=== PATIENT | female | born 2000 | race Caucasian/White ===

== ENCOUNTER 2024-07-01 08:16 | Emergency (ER) | payer OTHER, MEDICAID, SELFPAY ==
[2024-07-01 08:32] VITALS: BP 103/65; PULSE 71; RESP 18; TEMP 36.8; O2SAT 99; BMI 24.4
--- NOTE | 2024-07-01 08:39 | XR_ITS ---
Examination: Complete OB ultrasound, less than 14 weeks, transabdominal Date and time of exam: July 01, 2024 0915 hours INDICATIONS: Maternal anemia on laboratory examination June 16, 2024, vaginal bleeding history Technique: Obstetrical ultrasound images less than 14 weeks performed via transabdominal imaging Findings: Uterus 14.1 x 5.6 x 7.0 cm Intrauterine gestational sac 3.2 cm corresponds to 8 weeks 3 days gestational age No pole No cardiac activity Right ovary 3.5 x 3.0 x 2.8 cm arterial flow 22 mm follicular cyst Left ovary 2.9 x 2.1 x 2.7 cm arterial flow IMPRESSION: Findings most consistent with demise, recommend short-term follow-up transvaginal pelvic sonography
--- NOTE | 2024-07-01 08:40 | EDNOTE_ITS ---
<Statement entered by Jeanine Musa MD - 07/08/24 14:47> As co-signing physician, I was present and available for consult prn. I concur with the plan and care as documented by the midlevel provider. ED OB Contraction Preg RMI/HPI General Chief complaint: OB/Uterine Contractions Stated complaint: SENT BY OB FOR US Time Seen by Provider: 07/01/24 08:37 Source: patient Arrival date/time: 07/01/24 08:16 24-year-old female with no known medical history presents to the emergency room with a chief complaint of a decreasing hCG levels. Patient was sent over by her OB for an ultrasound due to having decreased hCG levels and no heart tones heard during her 11-week appointment. Mode of arrival: ambulatory Limitations: no limitations Related Data Home Medications ?Medication ?Instructions ?Recorded ?Confirmed No Known Home Medications 11/12/21 11/12/21 Allergies Allergy/AdvReac Type Severity Reaction Status Date / Time promethazine Allergy Verified 07/01/24 08:20 Review of Systems Review of Systems Systems Reviewed: All systems reviewed, normal except as documented Constitutional Constitutional: Reports system reviewed and no additional complaints, except as documented, Denies fatigue, Denies fever(s), Denies headache(s) and Denies weakness Eyes Eyes: Reports system reviewed and no additional complaints, except as documented, Denies blurry vision and Denies change in vision ENT Ears, Nose, Mouth, and Throat: Reports system reviewed and no additional complaints, except as documented, Denies otalgia, Denies headache(s), Denies nasal congestion, Denies throat swelling and Denies vertigo Cardiovascular Cardiovascular: Reports system reviewed and no additional complaints, except as documented, Denies chest pain, Denies dyspnea and Denies dyspnea on exertion Respiratory Respiratory: Reports system reviewed and no additional complaints, except as documented, Denies chest congestion, Denies cough, Denies dyspnea, Denies dyspnea on exertion and Denies wheezing Gastrointestinal Gastrointestinal: Reports system reviewed and no additional complaints, except as documented, Denies abdominal pain, Denies cramping, Denies nausea and Denies vomiting Genitourinary Genitourinary: Reports system reviewed and no additional complaints, except as documented, Denies abnormal vaginal bleeding, Denies difficulty voiding and Denies pelvic pain Musculoskeletal Musculoskeletal: Reports system reviewed and no additional complaints, except as documented and Denies back pain Integumentary/Breasts Skin/Breast: Reports system reviewed and no additional complaints, except as do cumented and Denies wounds Neurologic Neurologic: Reports system reviewed and no additional complaints, except as documented, Denies confusion, Denies headache(s), Denies lack of coordination, Denies vertigo and Denies weakness Psychiatric Psychiatric: Reports system reviewed and no additional complaints, except as documented, Denies anxiety, Denies confusion, Denies depression, Denies paranoia, Denies suicidal ideation and Denies tactile hallucinations Endocrine Endocrine: Reports system reviewed and no additional complaints, except as documented and Denies fatigue Hematologic/Lymphatic Hematologic/Lymphatic: Reports system reviewed and no additional complaints, except as documented and Denies lymphadenopathy Allergic/Immunologic Allergic/Immunologic: Reports system reviewed and no additional complaints, except as documented, Denies throat swelling, Denies urticaria and Denies wheezing Past Medical History Past Medical History CARDIAC: Negative Congestive Heart Failure RESPIRATORY: Negative Chronic Obstructive Pulmonary Disease (COPD) GENITOURINARY: Negative Renal Disease ENDOCRINE: Negative Diabetes Mellitus Type 1 or Diabetes Mellitus Type 2 Social History SMOKING STATUS: Never smoker ED Exam General Limitations: Present no limitations General appearance: Present alert and in no apparent distress Head Head exam: Present atraumatic Eye Eye exam: Present normal appearance, PERRL and EOMI ENT ENT exam: Present normal exam, normal oropharynx and mucous membranes moist Neck Neck exam: Present normal inspection, full ROM and trachea midline Chest Chest inspection: Present normal inspection and symmetric chest wall rise Respiratory Respiratory exam: Present normal lung sounds bilaterally Cardiovascular Cardiovascular exam: Present regular rate, normal rhythm and normal heart sounds Abdominal Exam Abdominal exam: Present soft and normal bowel sounds; Absent distention, tenderness, guarding, rebound or rigidity Extremities Exam Extremities exam: Present normal inspection and full ROM Back Exam Back exam: Present normal inspection and full ROM Neurological Exam Neurological exam: Present alert, oriented X3 and CN II-XII intact Psychiatric Psychiatric exam: Present normal affect and normal mood Skin Skin exam: Present warm, dry, intact and normal color Course Quality Measures none Orders Category Date Time Status US OB <= 14 weeks fetus Stat Exams 07/01/24 08:39 Completed ABO/RH Type Stat Lab 07/01/24 09:05 Completed Beta HCG,Quantitative Stat Lab 07/01/24 09:05 Completed CBC Stat Lab 07/01/24 09:05 Completed CMP [Comprehensive Metabolic Panel] Stat Lab 07/01/24 09:05 Completed UA [Urinalysis] Stat Lab 07/01/24 08:59 Completed Vital Signs Vital signs: Vital Signs Temperature 98.3 F 07/01/24 08:32 Pulse Rate 71 07/01/24 08:32 Respiratory Rate 18 07/01/24 08:32 Blood Pressure 103/65 07/01/24 08:32 Pulse Oximetry (%) 99 07/01/24 08:32 Oxygen Delivery Method Room Air 07/01/24 08:32 OB/Uterine Contractions MDM Narrative MDM Narrative:: 24-year-old female with no known medical history presents to the emergency room with a chief complaint of a decreasing hCG levels. Patient was sent over by her OB for an ultrasound due to having decreased hCG levels and no heart tones heard during her 11-week appointment. Clinically the patient appears nontoxic and in no apparent distress. Physical examination shows no abdominal pain or tenderness. There is no vaginal bleeding at this time. Patient states she is here because her OB center for decreased hCG levels and no heart tones heard. Ultrasound was completed and shows no heart tones no pole and findings consistent with demise our radiologist recommends a short-term follow-up. Patient was educated to follow-up with her [facility] in the next 48 hours and if she is unable to get to an ultrasound appointment to return to the emergency room for repeat ultrasound and blood work. I ran the case with my attending physician Dr. MUSA and she agreed to the patient is ready for discharge. Patient was educated to follow-up with OB and return to the emergency room for any evidence of worsening signs or symptoms Patient data External records reviewed:: [facility] previous records Clinical information provided by:: patient Social determinants that could affect healthcare access:: none Patient has the following chronic illnesses:: No chronic illness How is presenting disease/condition affected by chronic disease/condition?: no chronic disease Evaluation data The following diagnostics were reviewed and interpreted by me:: lab results and radiology exam(s) Lab and/or radiology exams considered but not ordered:: Labs and radiology exams considered and ordered Interpretation Summary: Ultrasound OB-Findings: Uterus 14.1 x 5.6 x 7.0 cm Intrauterine gestational sac 3.2 cm corresponds to 8 weeks 3 days gestational age No pole No cardiac activity Right ovary 3.5 x 3.0 x 2.8 cm arterial flow 22 mm follicular cyst Left ovary 2.9 x 2.1 x 2.7 cm arterial flow IMPRESSION: Findings most consistent with demise, recommend short-term follow-up transvaginal pelvic sonography Medications / Prescriptions Medications or Prescriptions considered but not ordered:: N/A Medication administrations:: N/A Consultations Consultation(s) initiated? (list below): No Diagnosis OB Contractions Differential Diagnosis: normal delivery at term and other (Spontaneous /incomplete /complete ) Most likely diagnosis given after review of the tests above:: Incomplete Admission Indicated Admission indicated?: not indicated Explain why admission is indicated or not indicated:: N/A Admission Request Was there a request for admission?: No Disposition Plan Disposition Plan: Discharge Discharge Attestation Discharge Attestation: The patient and all family members were given an opportunity to ask questions and understood the discharge instructions. Discharge instructions specifically effects, indications for sooner follow up or return to the emergency department, and the expected course of current diagnosis. Patient condition: Stable Discharge Plan Plan Patient Disposition: HOME (Self Care) Disposition Comment: Stable Prescriptions/Referrals Prescriptions/Med Rec: No Action No Known Home Medications Referrals: Carlos Zhou MD [Primary Care Provider] - In 1 week Problem List Clinical Impression: Spontaneous Patient/Caregiver Discharge Instructions Education Materials: Loss Grieving, Understanding Miscarriage: Emotions, ED MISCARRIAGE Completed Additional Instructions: Please follow-up with your [facility] in 48 hours for repeat ultrasound and blood work. I attached a copy of your ultrasound results to your discharge paperwork. If you are unable to get to your OB please return to the emergency room. For any evidence of worsening signs or symptoms please return to the emergency room immediately Print Language: Czech Stand Alone Forms: Eli Award Info., Work/School Release, Patient Portal Info Letter PA/RASHID Supervising Physician PA/RASHID Supervising Physician: Dr. MUSA
[2024-07-01 09:14] LABS: Collection Type, Urine Clean Catch
[2024-07-01 09:20] LABS: Basophils % (Auto) 1 % (0-2.5); Eosinophils % (Auto) 1 % (0-10); Hemoglobin 11.5 g/dL (12.0-16.0); Immature Granulocytes % (Auto) 0 % (0-0); Immature Granulocytes Auto 0.01 Thou/mm3 (0.00-0.00); Lymphocytes # (Auto) 2.1 Thou/mm3 (1.0-4.8); Lymphocytes % (Auto) 32 % (10-50); Mean Corpuscular HGB Conc 32.9 g/dl (31.0-37.0); Mean Corpuscular Hemoglobin 29.3 pg (25.0-35.0); Mean Corpuscular Volume 89 fL (80-100); Monocytes # (Auto) 0.5 Thou/mm3 (0.0-0.8); Monocytes % (Auto) 7 % (0-12); Neutrophils # (Auto) 3.8 Thou/mm3 (1.8-7.7); Neutrophils % (Auto) 60 % (37-80); Nucleated Red Blood Cell % 0 /100 WBC (0); Platelet Count 269 Thou/mm3 (140-440); RDW Standard Deviation 39.1 fL (36.4-46.3); Red Blood Count 3.92 Miln/mm3 (4.00-5.20); White Blood Count 6.4 Thou/mm3 (3.6-11.0)
[2024-07-01 09:21] LABS: Bacteria,Urine 1+; Bilirubin,Urine Negative (Negative); Blood,Urine Negative (Negative); Clarity,Urine Clear (Clear/Hazy); Color,Urine Colorless (Lt Yel-Yel); Glucose, Urine Negative (Negative); Ketones,Urine Negative (Negative); Leukocyte Esterase,Urine Negative (Negative); Nitrite,Urine Negative (Negative); PH,Urine 7.5 (5.0-7.0); Protein,Urine Negative (Neg - Trace); RBC,Urine 6 /hpf (0-3); Specific Gravity,Urine 1.012 (1.001-1.035); Squamous Epithelial Cell,Urine 5 /hpf (0-5); Urobilinogen,Urine Negative mg/dL (0.0-1.0); WBC,Urine 1 /hpf (0-5)
[2024-07-01 09:48] LABS: Alanine Aminotransferase 12 U/L (10-49); Albumin, Serum 4.6 gm/dL (3.5-5.0); Albumin/Globulin Ratio 1.8 (1.2-2.2); Alkaline Phosphatase 45 U/L (46-116); Anion Gap 9 (7-16); Aspartate Amino Transferase 11 U/L (0-34); BUN/Creatinine Ratio 18 Ratio (12-20); Bilirubin,Total 0.3 mg/dL (0.3-1.2); Blood Urea Nitrogen 11 mg/dL (9-23); Calcium 9.7 mg/dL (8.3-10.6); Calcium (Corrected) 9.7 mg/dL (8.5-10.1); Carbon Dioxide 23.3 mMol/L (20.0-31.0); Chloride 104 mMol/L (98-107); Creatinine (Component) 0.6 mg/dL (0.6-1.3); Estimated Creatinine Clearance 130.9 mL/min (>60); Globulin 2.6 gm/dL (2.3-3.5); Glucose 70 mg/dL (74-106); Osmolality,Calculated 269 (275-295); Potassium 4.2 mMol/L (3.4-5.1); Sodium 136 mMol/L (136-145); Total Protein 7.2 gm/dL (5.7-8.2); eGFR > 60 See Note
[2024-07-01 10:22] LABS: Beta HCG,Quantitative 21262 mIU/mL (<5.0)
== END 2024-07-01 10:55 | disposition home or self-care (01) ==
PROVIDERS: Nurse Practitioner Family; Emergency Provider Emergency Medicine; PCP Family Medicine
DX: O03.4 Incomplete spontaneous abortion without complication (principal)
CPT/HCPCS: 36415; 76801; 80053; 81001; 84702; 85025; 86900; 86901; 99284

== ENCOUNTER 2024-07-14 08:18 | Emergency (ER) | payer OTHER, MEDICAID, SELFPAY ==
[2024-07-14 08:26] VITALS: BP 110/65; PULSE 72; RESP 19; TEMP 36.6; O2SAT 100; BMI 24.5
--- NOTE | 2024-07-14 08:31 | XR_ITS ---
Examination: OB Transvaginal ultrasound of the pelvis, complete Technique: Transvaginal sonographic images pelvis performed using rush scale imaging Exam date and time: July 14, 2024 0922 hours INDICATIONS: medication administered one week ago FINDINGS: Uterus 12.3 x 7.5 x 9.4 cm Intrauterine gestational sac 2.3 cm corresponds to 7 weeks 2 days gestational age No pole No cardiac activity Right ovary 3.0 x 2.5 cm arterial flow 17 mm follicular cyst Left ovary 3.0 x 2.3 cm arterial flow IMPRESSION: Empty intrauterine gestational sac corresponding to 7 weeks 2 days gestational age No pole, no cardiac activity Findings most consistent with spontaneous in progress, recommend continued short-term follow-up transvaginal pelvic sonography.
--- NOTE | 2024-07-14 08:31 | XR_ITS ---
Examination: Complete OB ultrasound, less than 14 weeks, transabdominal Date and time of exam: July 14, 2024 0902 hours INDICATIONS: Patient administered fell one week ago Technique: Obstetrical ultrasound images less than 14 weeks performed via transabdominal imaging Findings: Uterus 13.4 x 5.9 x 8.0 cm Empty intrauterine gestational sac corresponding to 7 weeks 4 days gestational age No pole No cardiac activity Right ovary 3.6 x 2.6 x 3.1 cm arterial flow 23 mm follicular cyst Left ovary 3.0 x 2.4 x 2.0 cm arterial flow IMPRESSION: Empty intrauterine gestational sac corresponding 7 weeks 4 days gestational age No pole, no cardiac activity The findings are most consistent with spontaneous in progress, suggest continued short-term follow-up transvaginal pelvic sonography
--- NOTE | 2024-07-14 08:46 | EDNOTE_ITS ---
<Statement entered by Jeanine Musa MD - 07/14/24 12:29> As co-signing physician, I was present and available for consult prn. I concur with the plan and care as documented by the midlevel provider. ED Female Urogenital RME/HPI General Chief complaint: Urogenital-Female Stated complaint: SENT BY OB FOR FETILE DEMISE Time Seen by Provider: 07/14/24 08:29 Source: patient Arrival date/time: 07/14/24 08:18 This is a 24-year-old female who presents to the emergency department and request for a repeat OB ultrasound due to demise. According to the patient she has had a demise and was given medication to pass products of conception. Was sent here by her OB to rule out retained products of conception. Patient has no symptoms no abdominal pain no nausea no vomiting no fever no chills no dysuria or hematuria. Related Data Home Medications ?Medication ?Instructions ?Recorded ?Confirmed No Known Home Medications 11/12/21 11/12/21 Allergies Allergy/AdvReac Type Severity Reaction Status Date / Time promethazine Allergy Severe Hives Verified 07/14/24 08:20 Review of Systems Review of Systems Systems Reviewed: All systems reviewed, normal except as documented Narrative Review of Systems: Gen: No fever, no chills, no weight loss EYES: No discharge, no visual changes, no pain HEENT: No ear pain, no congestion, no sore throat PULM: No shortness of breath, no cough, no congestion CV: No chest pain, no dyspnea on exertion, no palpitations GI: No nausea, no vomiting, no diarrhea, no pain, no constipation : No frequency, no urgency, no dysuria Musc/skel: No joint pain, no back pain Skin: No rash Psyc: No hallucinations, no depression Heme/Lymph: No easy bleeding or bruising tendencies Neuro: No weakness, no headache ED Exam Narrative Physical exam: General: Sittiing in Exam table in no acute distress, answering questions appropriately HENT: normocephalic, atraumatic, EOMI, PERRLA, moist mucous membranes Chest: chest wall is nontender Cardiac: regular rate and rhythm, normal S1 and S2, no murmurs, rubs, or gallops, capillary refill ?2 seconds Pulmonary: clear to auscultation bilaterally, no wheezing, crackles, or rhonchi Abdominal: active bowel sounds, soft, nontender, nondistended Neuro: A&OX3, CN II-XII intact, sensation grossly intact bilaterally in UE and LE. Skin: no rashes, no ecchymosis Ext: no lower extremity edema Course Quality Measures none Orders Category Date Time Status US OB <= 14 weeks fetus Stat Exams 07/14/24 08:31 Completed US OB transvaginal Stat Exams 07/14/24 08:31 Completed Beta HCG,Quantitative Stat Lab 07/14/24 08:38 Completed CBC Stat Lab 07/14/24 08:38 Completed CMP [Comprehensive Metabolic Panel] Stat Lab 07/14/24 08:38 Completed PT [Prothrombin Time with INR] Stat Lab 07/14/24 08:38 Completed Vital Signs Vital signs: Vital Signs Temperature 97.8 F 07/14/24 08:26 Pulse Rate 72 07/14/24 08:26 Respiratory Rate 19 07/14/24 08:26 Blood Pressure 110/65 07/14/24 08:26 Pulse Oximetry (%) 100 07/14/24 08:26 Oxygen Delivery Method Room Air 07/14/24 08:26 Urogenital - Female MDM Narrative MDM Narrative:: 24-year-old female here requesting repeat ultrasound due to spontaneous . Concerns for retained products. Patient is asymptomatic no fever no nausea no vomiting no vaginal bleeding no hemorrhage no dysuria. Patient states she was given medication by her PCP to complete . Reports has not passed complete tissue. Abdominal ultrasound reports spontaneous in progress. Patient's labs reviewed and reassuring no leukocytosis no bandemia. I did go ahead and speak with Dr. REYES, imaging and labs reviewed, recommends patient can be discharged home and she will follow-up with her tomorrow in her clinic. Advised patient if any changes worsening symptoms as discussed return to the emergency department immediately. Patient data External records reviewed:: [facility] previous records Clinical information provided by:: patient Social determinants that could affect healthcare access:: none Patient has the following chronic illnesses:: None How is presenting disease/condition affected by chronic disease/condition?: no chronic disease Evaluation data The following diagnostics were reviewed and interpreted by me:: lab results and radiology exam(s) Lab and/or radiology exams considered but not ordered:: Yes considered ordered Interpretation Summary: OB Transvaginal ultrasound of the pelvis, complete Technique: Transvaginal sonographic images pelvis performed using rush scale imaging Exam date and time: July 14, 2024 0922 hours INDICATIONS: medication administered one week ago FINDINGS: Uterus 12.3 x 7.5 x 9.4 cm Intrauterine gestational sac 2.3 cm corresponds to 7 weeks 2 days gestational age No pole No cardiac activity Right ovary 3.0 x 2.5 cm arterial flow 17 mm follicular cyst Left ovary 3.0 x 2.3 cm arterial flow IMPRESSION: Empty intrauterine gestational sac corresponding to 7 weeks 2 days gestational age No pole, no cardiac activity Findings most consistent with spontaneous in progress, recommend continued short-term follow-up transvaginal pelvic sonography. Examination: Complete OB ultrasound, less than 14 weeks, transabdominal Date and time of exam: July 14, 2024 0902 hours INDICATIONS: Patient administered fell one week ago Technique: Obstetrical ultrasound images less than 14 weeks performed via transabdominal imaging Findings: Uterus 13.4 x 5.9 x 8.0 cm Empty intrauterine gestational sac corresponding to 7 weeks 4 days gestational age No pole No cardiac activity Right ovary 3.6 x 2.6 x 3.1 cm arterial flow 23 mm follicular cyst Left ovary 3.0 x 2.4 x 2.0 cm arterial flow IMPRESSION: Empty intrauterine gestational sac corresponding 7 weeks 4 days gestational age No pole, no cardiac activity The findings are most consistent with spontaneous in progress, suggest continued short-term follow-up transvaginal pelvic sonography Medications / Prescriptions Medications or Prescriptions considered but not ordered:: No Medication administrations:: No Consultations Consultation(s) initiated? (list below): No Diagnosis Urogenital Female Differential Diagnosis: urinary tract infection, bacterial vaginosis, ruptured ovarian cyst and other ( demise, retained parts of conception, UTI) Most likely diagnosis given after review of the tests above:: demise Admission Indicated Admission indicated?: not indicated Admission Request Was there a request for admission?: No Disposition Plan Disposition Plan: Discharge Discharge Attestation Discharge Attestation: The patient and all family members were given an opportunity to ask questions and understood the discharge instructions. Discharge instructions specifically effects, indications for sooner follow up or return to the emergency department, and the expected course of current diagnosis. Patient condition: Stable Discharge Plan Plan Patient Disposition: HOME (Self Care) Patient condition on transfer: Stable Prescriptions/Referrals Prescriptions/Med Rec: No Action No Known Home Medications Referrals: Carlos Zhou MD [Primary Care Provider] - In 1 week Problem List Clinical Impression: Spontaneous Patient/Caregiver Discharge Instructions Discharge Activity: activity as tolerated Education Materials: Understanding Miscarriage ... Additional Instructions: - Your ultrasound today demonstrates you are having spontaneous miscarriage in progress. I reviewed your ultrasound and labs with Dr. REYES, I recommend you see her in her office tomorrow please call the clinic to schedule an appointment. Please return to the emergency department if you develop fever, severe pain vaginal bleeding or any worsening symptoms or change in condition. Print Language: Yi Stand Alone Forms: Eli Award Info., Patient Portal Info Letter PA/ELECTRIC CELL TENDER Supervising Physician PA/ELECTRIC CELL TENDER Supervising Physician: Dr. Gomez
[2024-07-14 08:56] LABS: Basophils % (Auto) 1 % (0-2.5); Eosinophils % (Auto) 1 % (0-10); Hematocrit 35.1 % (36.0-46.0); Hemoglobin 12.1 g/dL (12.0-16.0); Immature Granulocytes % (Auto) 0 % (0-0); Immature Granulocytes Auto 0.02 Thou/mm3 (0.00-0.00); Lymphocytes # (Auto) 2.2 Thou/mm3 (1.0-4.8); Lymphocytes % (Auto) 38 % (10-50); Mean Corpuscular HGB Conc 34.5 g/dl (31.0-37.0); Mean Corpuscular Hemoglobin 30.3 pg (25.0-35.0); Mean Corpuscular Volume 88 fL (80-100); Monocytes # (Auto) 0.4 Thou/mm3 (0.0-0.8); Monocytes % (Auto) 8 % (0-12); Neutrophils % (Auto) 52 % (37-80); Nucleated Red Blood Cell % 0 /100 WBC (0); Platelet Count 263 Thou/mm3 (140-440); RDW Standard Deviation 39.6 fL (36.4-46.3); Red Blood Count 3.99 Miln/mm3 (4.00-5.20); White Blood Count 5.7 Thou/mm3 (3.6-11.0)
[2024-07-14 09:24] LABS: Alanine Aminotransferase 12 U/L (10-49); Albumin, Serum 4.7 gm/dL (3.5-5.0); Albumin/Globulin Ratio 1.6 (1.2-2.2); Alkaline Phosphatase 48 U/L (46-116); Anion Gap 8 (7-16); Aspartate Amino Transferase 13 U/L (0-34); BUN/Creatinine Ratio 18 Ratio (12-20); Bilirubin,Total 0.3 mg/dL (0.3-1.2); Blood Urea Nitrogen 9 mg/dL (9-23); Calcium 9.7 mg/dL (8.3-10.6); Calcium (Corrected) 9.7 mg/dL (8.5-10.1); Carbon Dioxide 24.8 mMol/L (20.0-31.0); Chloride 102 mMol/L (98-107); Creatinine (Component) 0.5 mg/dL (0.6-1.3); Estimated Creatinine Clearance 151.1 mL/min (>60); Globulin 2.9 gm/dL (2.3-3.5); Glucose 86 mg/dL (74-106); Osmolality,Calculated 267 (275-295); Potassium 4.1 mMol/L (3.4-5.1); Sodium 135 mMol/L (136-145); Total Protein 7.6 gm/dL (5.7-8.2); eGFR > 60 See Note
[2024-07-14 09:35] LABS: Beta HCG,Quantitative 2209 mIU/mL (<5.0)
[2024-07-14 09:42] LABS: Prothrombin Time 10.8 Seconds (9.0-12.2)
== END 2024-07-14 11:20 | disposition home or self-care (01) ==
PROVIDERS: Nurse Practitioner Primary Care; Emergency Provider Emergency Medicine; PCP Family Medicine
DX: O03.9 Complete or unspecified spontaneous abortion without complication (principal); Z3A.01 Less than 8 weeks gestation of pregnancy
CPT/HCPCS: 36415; 76801; 76817; 80053; 84702; 85025; 85610; 99284

== ENCOUNTER 2024-07-18 07:24 | Day surgery (SDC) | payer OTHER, MEDICAID, SELFPAY ==
[2024-07-18] VITALS (17 sets, daily range): BP systolic 86–116; BP diastolic 58–79; PULSE 56–84; RESP 12–20; TEMP 36.4–37.1; O2SAT 95–100; BMI 24.4
--- NOTE | 2024-07-18 07:45 | XR_ITS ---
Examination: Complete OB ultrasound, less than 14 weeks, transabdominal Date and time of exam: July 18, 2024 0830 hours INDICATIONS: Vaginal bleeding pelvic cramping beginning 2 days ago, patient given medical pill 2 weeks ago, ultrasound pelvis July 14, 2024 intrauterine gestational sac 7 weeks 2 days no pole no cardiac activity Technique: Obstetrical ultrasound images less than 14 weeks performed via transabdominal imaging Findings: Uterus 9.4 x 6.6 x 9.0 cm Irregular intrauterine gestational sac in the body of the uterus, corresponding to 7 weeks 5 day gestational age No pole No cardiac activity Right ovary 4.1 x 2.3 x 2.9 cm arterial flow 17 mm follicle Left ovary 2.8 x 1.9 x 3.1 cm arterial flow IMPRESSION: Findings most consistent with incomplete spontaneous
--- NOTE | 2024-07-18 07:45 | PD.EDRME ---
Rapid Medical Screening Exam RME Arrival date/time: 07/18/24 07:24 24-year-old female history of demise here due to pelvic pain vaginal bleeding requesting ultrasound for possible retained POC. Chief Complaint: Urogenital-Female Time Seen by Provider: 07/18/24 07:32 Vital signs: Vital Signs Temperature 98.4 F 07/18/24 07:34 Pulse Rate 70 07/18/24 07:34 Respiratory Rate 17 07/18/24 07:34 Blood Pressure 116/77 07/18/24 07:34 Pulse Oximetry (%) 99 07/18/24 07:34 Oxygen Delivery Method Room Air 07/18/24 07:34
[2024-07-18 08:24] LABS: Collection Type, Urine Clean Catch
[2024-07-18 09:02] LABS: Bacteria,Urine 2+; Bilirubin,Urine Negative (Negative); Blood,Urine 3+ (Negative); Clarity,Urine Turbid (Clear/Hazy); Color,Urine Yellow (Lt Yel-Yel); Glucose, Urine Negative (Negative); Ketones,Urine 2+ (Negative); Leukocyte Esterase,Urine Positive (Negative); Nitrite,Urine Negative (Negative); Protein,Urine 1+ (Neg - Trace); RBC,Urine 23 /hpf (0-3); Specific Gravity,Urine 1.031 (1.001-1.035); Squamous Epithelial Cell,Urine 19 /hpf (0-5); Urobilinogen,Urine Negative mg/dL (0.0-1.0); WBC,Urine 48 /hpf (0-5)
[2024-07-18 09:42] LABS: Basophils % (Auto) 1 % (0-2.5); Eosinophils # (Auto) 0.1 Thou/mm3 (0.0-0.5); Eosinophils % (Auto) 1 % (0-10); Hematocrit 35.7 % (36.0-46.0); Hemoglobin 12.4 g/dL (12.0-16.0); Immature Granulocytes % (Auto) 0 % (0-0); Immature Granulocytes Auto 0.02 Thou/mm3 (0.00-0.00); Lymphocytes # (Auto) 2.2 Thou/mm3 (1.0-4.8); Lymphocytes % (Auto) 30 % (10-50); Mean Corpuscular HGB Conc 34.7 g/dl (31.0-37.0); Mean Corpuscular Hemoglobin 30.3 pg (25.0-35.0); Mean Corpuscular Volume 87 fL (80-100); Monocytes # (Auto) 0.6 Thou/mm3 (0.0-0.8); Monocytes % (Auto) 9 % (0-12); Neutrophils # (Auto) 4.4 Thou/mm3 (1.8-7.7); Neutrophils % (Auto) 60 % (37-80); Nucleated Red Blood Cell % 0 /100 WBC (0); Platelet Count 257 Thou/mm3 (140-440); RDW Standard Deviation 38.5 fL (36.4-46.3); Red Blood Count 4.09 Miln/mm3 (4.00-5.20); White Blood Count 7.3 Thou/mm3 (3.6-11.0)
--- NOTE | 2024-07-18 09:46 | PD.GYNHP ---
Documentation for date of: 07/18/24 FIRE AND EXPLOSION INVESTIGATOR - HPI History of Present Illness History of present illness: Ms. WRIGHT is a 24 year old female p0 , here for vaginal bleeding. Patient was seen in the ED and was diagnosed with Missed , was given medication to complete cassius . She has been bleeding but denies expelling any tissue vaginally. Denies any pain abdomen. No medical history [facility] Home Medications and Allergies Home Medications ?Medication ?Instructions ?Recorded ?Confirmed ?Type No Known Home Medications 11/12/21 11/12/21 History Allergies Allergy/AdvReac Type Severity Reaction Status Date / Time promethazine Allergy Severe Hives Verified 07/18/24 07:27 Exam - FIRE AND EXPLOSION INVESTIGATOR Vital Signs Temp Pulse Resp BP Pulse Ox O2 Del Method 98.4 F 70 17 116/77 99 Room Air 07/18/24 07:34 07/18/24 07:34 07/18/24 07:34 07/18/24 07:34 07/18/24 07:34 07/18/24 07:34 Constitutional Constitutional: no acute distress Routine HEENT Exam Head: Present normocephalic and atraumatic Eye: Present EOMI and PERRL ENT: Present mucous membranes moist Routine Neck Exam Neck: Present supple and trachea midline Routine Respiratory Exam Respiratory: Present chest non-tender, lungs clear, normal breath sounds and no resp distress Routine Cardiovascular Exam Cardiovascular: Present RRR Routine Abdominal Exam Abdominal: Present soft and normoactive bowel sounds Routine Exam Comments: cervix open, bleeding + Routine Extremities Exam Extremities: Present full ROM Routine Skin Exam Skin: Present intact and dry Routine Neurological Exam Neurological: Present alert, oriented X3 and CN II-XII intact Routine Psychiatric Exam Psychiatric: Present normal affect and normal thought process FIRE AND EXPLOSION INVESTIGATOR - Results Labs 07/18/24 09:18 07/18/24 09:18 Labs: Urine 07/18/24 Range/Units 08:00 Urine Color Yellow (Lt Yel-Yel) Urine Clarity Turbid A (Clear/Hazy) Urine pH 6.0 (5.0-7.0) Ur Specific [place] 1.031 (1.001-1.035) Urine Protein 1+ A (Neg - Trace) Urine Glucose (UA) Negative (Negative) Impressions Impression: 24 y/o p0, missed VSS s/p failed medical management Hb pending US: Gestational sac seen irregular , no pole HCG dropped from last week Assessment and Plan Additional Assessment & Plan Additional Plan: Boarded for suction D&C doxycycline for surgiical prophylaxis Rhnegative, Rhogam will be given postoperatively Quality Measures Quality Measures VTE prophylaxis
[2024-07-18 09:56] LABS: Prothrombin Time 10.9 Seconds (9.0-12.2)
[2024-07-18 10:06] LABS: Alanine Aminotransferase 13 U/L (10-49); Albumin, Serum 4.6 gm/dL (3.5-5.0); Albumin/Globulin Ratio 1.5 (1.2-2.2); Alkaline Phosphatase 52 U/L (46-116); Anion Gap 8 (7-16); Aspartate Amino Transferase 16 U/L (0-34); BUN/Creatinine Ratio 17 Ratio (12-20); Bilirubin,Total 0.5 mg/dL (0.3-1.2); Blood Urea Nitrogen 10 mg/dL (9-23); Calcium 9.9 mg/dL (8.3-10.6); Calcium (Corrected) 9.9 mg/dL (8.5-10.1); Carbon Dioxide 24.2 mMol/L (20.0-31.0); Chloride 104 mMol/L (98-107); Creatinine (Component) 0.6 mg/dL (0.6-1.3); Estimated Creatinine Clearance 120.6 mL/min (>60); Glucose 84 mg/dL (74-106); Osmolality,Calculated 269 (275-295); Potassium 4.2 mMol/L (3.4-5.1); Sodium 136 mMol/L (136-145); Total Protein 7.6 gm/dL (5.7-8.2); eGFR > 60 See Note
[2024-07-18 10:21] LABS: Beta HCG,Quantitative 1194 mIU/mL (<5.0)
--- NOTE | 2024-07-18 14:37 | SUR.PHASEI ---
pt received from OR in recovery bay 7. pt asleep but responds to voice, breathing unlabored on room air. v/s stable. pt dressing peripad scant bleeding noted. report received from Dwight BOOTH and Dr. Cheek.
--- NOTE | 2024-07-18 14:54 | SUR.PHASEI ---
pt able to tolerate oral fluids without difficulty swallowing or nausea/vomiting.
--- NOTE | 2024-07-18 17:53 | SUR.PHASEII ---
pt awake and alert, breathing unlabored on room air. v/s stable. pt dressing peripad scant blood noted. pt able to ambulate to wheelchair with steady gait. d/c instructions given with s/o Kiara in room, all questions answered. pt d/c via wheelchair with all belongings.
--- NOTE | 2024-07-21 10:27 | ESOP_ITS ---
Operative Note - [facility] Procedure Date of procedure: 07/18/24 Procedure Performed: suction D&c Indication: incomplete failed medical management Pre-Op diagnosis: same Post-Op diagnosis: same Anesthesia type: General Procedure description: The patient was seen prior to surgery. The potential benefits and risks of the procedure, the likelihood of success, and the problems related to recuperation have been discussed with patient who agrees to proceed. The possible results of nontreatment and significant alternatives to the proposed procedure have also been explained, along with the risks and benefits of the alternatives. Risks and benefits of chosen anesthetic/sedation and possible use of blood/blood products (if appropriate) were discussed.The patient was identified as Gabby Murillo and the procedure verified. A time out was held reviewing the patient identifiers, procedure planned and allergies. At this point the procedure was begun. The patient was positioned and prepped in routine fashion in the dorsal lithotomy position using yellofin stirups. A weighted speculum was then placed into the patient's posterior vagina. A shawn was used to expose the anterior lip of the cervix which was then grasped by a ringed forceps.The cervix was found to be dilated to about 2.5 cm. bimanual exam revealed about 10 weeks uterus Suction cannula size 10 was gently advanced to the uterine fundus . The suction device was then activated and the curette r otated to clear products of conception. A horseshoe curette was then performed until a gritty texture was noted. The suction curette was then reintroduced to to clear the uterus of all remaining products of conception. The tenaculum was removed. There was some persistent trickling of blood from the cervical os and bimanual massage was performed. Tranexamic acid was given during the surgery Estimated blood loss (ml): 100 Surgical staff Operation Date: 07/18/24 10:15 Case Staff Anesthesiologist: Doug Cheek Diagnosis Problem List Completed Was Problem List Reviewed/Reconciled?: Yes
== END 2024-07-18 17:53 | disposition home or self-care (01) ==
LOC: SERX 09:39 → S2EX 10:27
PROVIDERS: Nurse Practitioner Primary Care; Emergency Provider Emergency Medicine; Referring Provider Student in an Organized Health Care Education/Training Program; Visit Provider Student in an Organized Health Care Education/Training Program
PROC: (CPT 58120; principal; 2024-07-18 10:00)
DX: O03.4 Incomplete spontaneous abortion without complication (principal)
CPT/HCPCS: 59812; 36415; 36430; 76801; 80053; 81001; 84702; 85025; 85461; 85610; 86850; 86900; 86901; 87086; 99285; A4217; J0330; J1100; J2250; J2704; J2765; J2790; J3010; J3490; S0191; A9270

== ENCOUNTER 2024-07-20 21:09 | Emergency (ER) | payer OTHER, MEDICAID, SELFPAY ==
[2024-07-20 21:29] VITALS: BP 120/65; PULSE 107; RESP 18; TEMP 37; O2SAT 98; BMI 25.0
--- NOTE | 2024-07-20 21:31 | XR_ITS ---
Examination: OB Transvaginal ultrasound of the pelvis, complete Technique: Transvaginal sonographic images pelvis performed using rush scale imaging Exam date and time: July 20, 2024 1 0149 hrs. Indications: Vaginal bleeding and pelvic pain beginning 3 days ago, status post D&C July 18, 2024 Findings: Uterus 10.3 x 4.8 x 6.0 cm Fluid and blood in the lower uterine segment and cervix 6.0 x 2.4 x 2.8 cm No intrauterine gestation In the cervix 4.2 x 2.6 x 3.8 cm avascular area Right ovary 4.1 x 2.0 x 2.9 cm arterial flow 15 mm follicular cyst Left ovary 2.9 x 1.7 x 2.6 cm arterial flow Fundal endometrial stripe is 9 mm Impression: Findings most consistent with fluid and blood in the lower uterine segment and cervix, not characteristic for retained products of conception Suggest short-term follow-up transvaginal pelvic sonography as clinically warranted.
--- NOTE | 2024-07-20 21:33 | EDRME_ITS ---
Rapid Medical Screening Exam E Arrival date/time: 07/20/24 21:09 24-year-old female with no known medical history presents to the emergency room with a chief complaint of lower abdominal 10 out of 10 pain, and passing blood clots. Patient states she had a D&C that was completed by her DOG [employer] MANAGER Dr. Arboleda 2 days ago. I have greeted and performed a focused initial assessment of this patient. A comprehensive ED assessment and evaluation of the patient, analysis of all test results, and completion of the medical decision making process will be conducted by additional ED providers. Chief Complaint: Abdominal Pain Vital signs: Vital Signs Temperature 98.6 F 07/20/24 21:29 Pulse Rate 107 H 07/20/24 21:29 Respiratory Rate 18 07/20/24 21:29 Blood Pressure 120/65 07/20/24 21:29 Pulse Oximetry (%) 98 07/20/24 21:29 Oxygen Delivery Method Room Air 07/20/24 21:29 Vital signs reviewed by provider: Yes
[2024-07-20] MEDS: HYDROcodone/APAP 5/325 TABLET 1 TAB PO (22:17)
[2024-07-20 23:03] LABS: Basophils % (Auto) 0 % (0-2.5); Eosinophils # (Auto) 0.1 Thou/mm3 (0.0-0.5); Eosinophils % (Auto) 1 % (0-10); Hematocrit 32.1 % (36.0-46.0); Hemoglobin 10.7 g/dL (12.0-16.0); Immature Granulocytes % (Auto) 1 % (0-0); Immature Granulocytes Auto 0.05 Thou/mm3 (0.00-0.00); Lymphocytes # (Auto) 3.1 Thou/mm3 (1.0-4.8); Lymphocytes % (Auto) 29 % (10-50); Mean Corpuscular HGB Conc 33.3 g/dl (31.0-37.0); Mean Corpuscular Volume 90 fL (80-100); Monocytes # (Auto) 0.7 Thou/mm3 (0.0-0.8); Monocytes % (Auto) 6 % (0-12); Neutrophils # (Auto) 6.6 Thou/mm3 (1.8-7.7); Neutrophils % (Auto) 63 % (37-80); Nucleated Red Blood Cell % 0 /100 WBC (0); Platelet Count 227 Thou/mm3 (140-440); RDW Standard Deviation 40.2 fL (36.4-46.3); Red Blood Count 3.57 Miln/mm3 (4.00-5.20); White Blood Count 10.5 Thou/mm3 (3.6-11.0)
[2024-07-20] MEDS: ONDANSETRON ODT 4 MG TABRAP PO (23:05)
[2024-07-20 23:23] LABS: Alanine Aminotransferase 13 U/L (10-49); Albumin, Serum 4.7 gm/dL (3.5-5.0); Albumin/Globulin Ratio 1.7 (1.2-2.2); Alkaline Phosphatase 49 U/L (46-116); Anion Gap 10 (7-16); Aspartate Amino Transferase 13 U/L (0-34); BUN/Creatinine Ratio 18 Ratio (12-20); Beta HCG,Quantitative 190 mIU/mL (<5.0); Bilirubin,Total 0.3 mg/dL (0.3-1.2); Blood Urea Nitrogen 11 mg/dL (9-23); Calcium 9.5 mg/dL (8.3-10.6); Calcium (Corrected) 9.5 mg/dL (8.5-10.1); Carbon Dioxide 22.7 mMol/L (20.0-31.0); Chloride 105 mMol/L (98-107); Creatinine (Component) 0.6 mg/dL (0.6-1.3); Estimated Creatinine Clearance 131.3 mL/min (>60); Globulin 2.8 gm/dL (2.3-3.5); Glucose 98 mg/dL (74-106); Osmolality,Calculated 275 (275-295); Potassium 3.6 mMol/L (3.4-5.1); Sodium 138 mMol/L (136-145); Total Protein 7.5 gm/dL (5.7-8.2); eGFR > 60 See Note
[2024-07-20 23:57] VITALS: BP 115/70; PULSE 115; RESP 18; TEMP 37; O2SAT 98
--- NOTE | 2024-07-21 00:17 | PC.NURSE ---
PT HAD LARGE CLOT LEAVE HER BODY AND ALL THE CRAMPING STOPPED. CLOT IN SPECIMEN CUP AT BEDSIDE.
[2024-07-21 00:43] LABS: Bacteria,Urine Rare; Bilirubin,Urine Negative (Negative); Blood,Urine 3+ (Negative); Clarity,Urine Clear (Clear/Hazy); Color,Urine Lt-Yellow (Lt Yel-Yel); Glucose, Urine Negative (Negative); Ketones,Urine 2+ (Negative); Leukocyte Esterase,Urine Positive (Negative); Nitrite,Urine Negative (Negative); Protein,Urine Trace (Neg - Trace); RBC,Urine 55 /hpf (0-3); Squamous Epithelial Cell,Urine 2 /hpf (0-5); Urobilinogen,Urine Negative mg/dL (0.0-1.0); WBC,Urine 4 /hpf (0-5)
[2024-07-21 00:49] LABS: Sperm,Urine Present
[2024-07-21 00:52] LABS: Collection Type, Urine Clean Catch
--- NOTE | 2024-07-21 00:53 | EDNOTE_ITS ---
ED Abdominal Pain RME/HPI General Chief Complaint: Abdominal Pain Stated complaint: D&C thursday/cramping worsening Time seen by provider: 07/20/24 22:33 Arrival date/time: 07/20/24 21:09 Limitations: no limitations RME / HPI RME / HPI narrative: Who is this person yes Dr. [facility]ajas's Main ED Evaluation: 24yo female who had a recent D&C by Dr. Arboleda on 07/18/24 presents to the ED for a chief complaint of lower abdominal cramping x 1900. Patient states her pain has been severe and constant, reporting she's had vaginal bleeding/passing blood clots, so she came in for evaluation. She denies any fever, chills, N/V or any other associated symptoms. Patient states she has a follow-up appointment with Dr. Arboleda on 07/25/24. Related Data Previous Rx's ?Medication ?Instructions ?Recorded ibuprofen 800 mg tablet 800 mg PO Q8H PRN pain #20 tabs 07/18/24 Allergies Allergy/AdvReac Type Severity Reaction Status Date / Time promethazine Allergy Severe Hives Verified 07/18/24 07:27 Review of Systems Review of Systems Systems Reviewed: All systems reviewed, normal except as documented Past Medical History Past Medical History NEUROLOGIC: Negative Seizures CARDIAC: Negative Congestive Heart Failure RESPIRATORY: Negative Chronic Obstructive Pulmonary Disease (COPD) GENITOURINARY: Negative Renal Disease ENDOCRINE: Negative Diabetes Mellitus Type 1 or Diabetes Mellitus Type 2 OTHER HISTORY: Negative Blood Transfusions or Anesthesia Reactions Social History SMOKING STATUS: Never smoker ED Exam General Limitations: Present no limitations General appearance: Present alert and in no apparent distress Head Head exam: Present atraumatic Eye Eye exam: Present normal appearance, PERRL and EOMI ENT ENT exam: Present normal exam, normal oropharynx and mucous membranes moist Neck Neck exam: Present normal inspection, full ROM and trachea midline Chest Chest inspection: Present normal inspection and symmetric chest wall rise Respiratory Respiratory exam: Present normal lung sounds bilaterally Cardiovascular Cardiovascular exam: Present regular rate, normal rhythm and normal heart sounds Abdominal Exam Abdominal exam: Present soft and normal bowel sounds; Absent tenderness or rebound Speculum exam: Present other (no blood or clots in the vaginal vault) Extremities Exam Extremities exam: Present normal inspection and full ROM Back Exam Back exam: Present normal inspection and full ROM Neurological Exam Neurological exam: Present alert, oriented X3 and CN II-XII intact Psychiatric Psychiatric exam: Present normal affect and normal mood Skin Skin exam: Present warm, dry, intact and normal color Course Quality Measures none Orders Category Date Time Status US OB transvaginal Stat Exams 07/20/24 21:31 Completed ABO/RH Type Stat Lab 07/20/24 22:39 Completed Beta HCG,Quantitative Stat Lab 07/20/24 22:39 Completed CBC Stat Lab 07/20/24 22:39 Completed CMP [Comprehensive Metabolic Panel] Stat Lab 07/20/24 22:39 Completed UA [Urinalysis] Stat Lab 07/21/24 00:03 Completed HYDROcodone*/APAP 5/325 [[place] 5/325] Med 07/20/24 21:34 Discontinued 1 tab PO X1 ONE Ondansetron Odt [Zofran Odt] Med 07/20/24 22:51 Discontinued 4 mg PO X1 ONE Vital Signs Vital signs: Vital Signs Temperature 98.6 F 07/20/24 21:29 Pulse Rate 107 H 07/20/24 21:29 Respiratory Rate 18 07/20/24 21:29 Blood Pressure 120/65 07/20/24 21:29 Pulse Oximetry (%) 98 07/20/24 21:29 Oxygen Delivery Method Room Air 07/20/24 21:29 Pulse ox is 98% on room air, which is normal according to my interpretation. Abdominal Pain MDM Patient data External records reviewed:: [facility] previous records (Per chart review, patient was here and had a suction D&C on 07/18/24.) Clinical information provided by:: patient Social determinants that could affect healthcare access:: none Patient has the following chronic illnesses:: none How is presenting disease/condition affected by chronic disease/condition?: no chronic disease Evaluation data The following diagnostics were reviewed and interpreted by me:: lab results and radiology exam(s) Lab and/or radiology exams considered but not ordered:: none Interpretation Summary: WBC count is normal, HnH is 10.5/32.1, CMP is normal, UA shows 55 RBCs, according to my interpretation. ---- [facility] Report Signed Patient: BOOM WRIGHT [facility]. Record#: [id number] Birthdate: 2000 Age/Sex: 24 / F Location: [facility] Attending Dr: Ordering Physician: Julio Washington Date of Service: 07/20/24 Procedure(s): US OB transvaginal Accession Number(s): [id number] cc: Julio Washington; Harris Stanton MD; NO PRIMA RY/FAMILY,PHYSICIAN~ Examination: OB Transvaginal ultrasound of the pelvis, complete Technique: Transvaginal sonographic images pelvis performed using rush scale imaging Exam date and time: July 20, 2024 1 0149 hrs. Indications: Vaginal bleeding and pelvic pain beginning 3 days ago, status post D&C July 18, 2024 Findings: Uterus 10.3 x 4.8 x 6.0 cm Fluid and blood in the lower uterine segment and cervix 6.0 x 2.4 x 2.8 cm No intrauterine gestation In the cervix 4.2 x 2.6 x 3.8 cm avascular area Right ovary 4.1 x 2.0 x 2.9 cm arterial flow 15 mm follicular cyst Left ovary 2.9 x 1.7 x 2.6 cm arterial flow Fundal endometrial stripe is 9 mm Impression: Findings most consistent with fluid and blood in the lower uterine segment and cervix, not characteristic for retained products of conception Suggest short-term follow-up transvaginal pelvic sonography as clinically warranted. Dictated By: Harris Stanton MD Signed By: <Electronically signed by Harris Stanton MD in OV> 07/20/24 2222 Medications / Prescriptions Medications or Prescriptions considered but not ordered:: none Medication administrations:: Medication Administration History Discontinued Medications Hydrocodone Bitart/Acetaminophen (Hydrocodone/Apap 5/325 Tablet) 1 tab PO X1 ONE Stop: 07/20/24 21:35 Last Admin: 07/20/24 22:17 Dose: 1 tab Documented By: SF Ondansetron HCl (Ondansetron Odt 4 Mg Tabrap) 4 mg PO X1 ONE; Protocol Stop: 07/20/24 22:52 Last Admin: 07/20/24 23:05 Dose: 4 mg Documented By: ADRIÁN see above Consultations Consultation(s) initiated? (list below): No Diagnosis Differential diagnosis abdominal pain: other (abnormal uterine bleeding, retained products, abdominal cramping) Most likely diagnosis given after review of the tests above:: see below Admission Indicated Admission indicated?: not indicated Admission Request Was there a request for admission?: No Disposition Plan Disposition Plan: Discharge Discharge Attestation Discharge Attestation: The patient and all family members were given an opportunity to ask questions and understood the discharge instructions. Discharge instructions specifically effects, indications for sooner follow up or return to the emergency department, and the expected course of current diagnosis. Patient condition: Stable Discharge Plan Plan Patient Disposition: HOME (Self Care) Patient condition on transfer: Stable Prescriptions/Referrals Prescriptions/Med Rec: No Action ibuprofen 800 mg tablet 800 mg PO Q8H PRN (Reason: pain) Qty: 20 0RF Referrals: No Primary/Family,Physician [Primary Care Provider] - In 1 week Problem List Clinical Impression: Abnormal vaginal bleeding Patient/Caregiver Discharge Instructions Education Materials: Understanding Uterine Bleeding Additional Instructions: Today your ultrasound does not show that you have retained products of conception in your uterus but you did have some blood and clots that you have passed here in the emergency department. I am glad that you are feeling better. Please let Dr. Valdez. A Office know that you were here to see if she wants to see you before Thursday's appointment. Return to the emergency department before your appointment with Dr. Arboleda on Thursday if you are having dizziness, increase in pain, any fever, or you are changing your pad more than 2 times for 2 hours in a row, or any other concerns. Print Language: Occitan Stand Alone Forms: Eli Award Info., Patient Portal Info Letter
[2024-07-21 01:06] VITALS: BP 120/75; PULSE 66; RESP 16; TEMP 37; O2SAT 99
== END 2024-07-21 01:25 | disposition home or self-care (01) ==
PROVIDERS: Nurse Practitioner Family; Emergency Provider Emergency Medicine
DX: N93.9 Abnormal uterine and vaginal bleeding, unspecified (principal)
CPT/HCPCS: 36415; 76817; 80053; 81001; 84702; 85025; 86900; 86901; 99284; Q0162; A9270